=== PATIENT | male | born 1995 | race Caucasian/White ===

== ENCOUNTER 2018-10-12 08:40 | Inpatient (IN) | payer OTHER ==
[2018-10-12 09:44] LABS: ABS Basophils 0.1 10^3/ul (0-0.2); ABS Eosinophils 0.2 10^3/ul (0-0.6); ABS Monocytes 0.9 10^3/ul (0-0.8); Eosinophil % 1.4 %; Hematocrit 43 % (42-52); Hemoglobin 14.3 g/dL (14.0-18.0); Lymphocyte % 16.4 %; Mean Corpuscular HGB Conc 33 g/dL (31-36); Mean Corpuscular Hemoglobin 31 pg (27-31); Mean Corpuscular Volume 93 fL (80-94); Mean Platelet Volume 6.4 fL (7.4-10.4); Nucleated Red Blood Cells % 0.1; Platelet Count 470 10^3/uL (150-450); Red Blood Count 4.65 10^6 /uL (4.18-5.48); Red Cell Distribution Width 13 % (10-15); White Blood Count 12.1 10^3/uL (3.5-10.8)
[2018-10-12 09:52] LABS: Urine Appearance Turbid; Urine Bacteria Absent (Absent); Urine Bilirubin 1+ (Negative); Urine Blood Negative (Negative); Urine Color Amber; Urine Glucose Negative (Negative); Urine Ketones 2+ (Negative); Urine Nitrite Negative (Negative); Urine Protein 3+(>=500 mg/dL) (Negative); Urine Red Blood Cell Absent (Absent); Urine Specific Gravity 1.043 (1.010-1.030); Urine Squamous Epithelial Cell Present (Absent); Urine Urobilinogen Negative (Negative); Urine White Blood Cell 3+(>20/hpf) (Absent)
[2018-10-12 09:55] LABS: ALT 27 U/L (7-52); AST 36 U/L (13-39); Albumin 4.7 g/dL (3.2-5.2); Albumin/Globulin Ratio 1.9 (1-3); Alkaline Phosphatase 77 U/L (34-104); Anion Gap 14 mmol/L (2-11); BUN/Creatinine Ratio 16.5 (8-20); Blood Urea Nitrogen 20 mg/dL (6-24); CO2 Carbon Dioxide 24 mmol/L (22-32); Calcium 9.3 mg/dL (8.6-10.3); Chloride 98 mmol/L (101-111); EGFR African American 88.4 (>60); EGFR Non-African American 73.1 (>60); Globulin 2.5 g/dL (2-4); Glucose 81 mg/dL (70-100); Potassium 3.6 mmol/L (3.5-5.0); Sodium 136 mmol/L (135-145); Total Protein 7.2 g/dL (6.4-8.9)
[2018-10-12 10:10] LABS: Urine Benzodiazepine Screen None Detected (None Detect); Urine Opiates Screen Presumptive Positive (None Detect)
[2018-10-12 10:16] LABS: Alcohol < 10 mg/dL (<10)
[2018-10-12 10:31] LABS: TSH (Thyroid Stimulating Horm) 1.98 mcIU/mL (0.34-5.60)
[2018-10-12] MEDS ORDERED: Al Hydrox/Mg Hydrox/Simet LIQ* 30 ML UDC PO PRN (10:49)
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
[2018-10-12 13:10] LABS: Acetaminophen < 15 mcg/mL
[2018-10-12] MEDS: Buprenorp/Nalox 8-2 MG FILM SL FILM SCH (14:57)
[2018-10-12] MEDS: Gabapentin CAP(*) 100 MG PO SCH ×2 (14:58→20:23)
[2018-10-12] MEDS ORDERED: PTO:Albuterol HFA INHALER* 8 gm MDI INH PRN (17:23)
[2018-10-12] MEDS: Nicotine* 4MG (FRUIT FLAVOR) GUM PO PRN ×2 (17:55→20:24)
[2018-10-12] MEDS: Nicotine PATCH 21 MG/24 HR* PATCH TRANSDERM SCH (17:56)
[2018-10-12] MEDS: [UNRECOGNIZED DRUG - OTHER] INH SCH (20:24)
[2018-10-12] MEDS: MDI INH SCH (20:24)
[2018-10-12] MEDS: MOMETASONE INH SCH (20:24)
[2018-10-13] MEDS: Gabapentin CAP(*) 100 MG PO SCH (08:50)
[2018-10-13] MEDS: Nicotine PATCH 21 MG/24 HR* PATCH TRANSDERM SCH (08:51)
[2018-10-13] MEDS: Buprenorp/Nalox 8-2 MG FILM SL FILM SCH (08:52)
[2018-10-13] MEDS: Nicotine* 4MG (FRUIT FLAVOR) GUM PO PRN ×2 (08:57→17:51)
[2018-10-13] MEDS: MDI INH SCH ×2 (09:58→20:08)
[2018-10-13] MEDS: MOMETASONE INH SCH ×2 (09:58→20:08)
[2018-10-13] MEDS: [UNRECOGNIZED DRUG - OTHER] INH SCH ×2 (09:58→20:08)
[2018-10-13] MEDS: Lithium Carbonate TAB* 300 MG PO SCH ×2 (13:00→20:06)
[2018-10-13] MEDS: Gabapentin CAP(*) 400 MG PO SCH ×2 (13:00→20:07)
[2018-10-13 13:20] LABS: HDL Cholesterol 18.8 mg/dL
[2018-10-13 13:21] LABS: HIV 4th Generation Negative (Negative)
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
[2018-10-13 15:30] LABS: Hepatitis C Antibody Reactive (Negative)
[2018-10-13] MEDS: Calamine LOTION* 120 ML TOPICAL SCH ×3 (17:52→20:09)
[2018-10-13] MEDS: QUEtiapine TAB* 25 MG PO SCH (20:06)
[2018-10-14 07:40] LABS: ABS Basophils 0.1 10^3/ul (0-0.2); ABS Eosinophils 0.2 10^3/ul (0-0.6); ABS Lymphocytes 2.2 10^3/ul (1.0-4.8); ABS Monocytes 0.6 10^3/ul (0-0.8); ABS Neutrophils 3.5 10^3/ul (1.5-7.7); Eosinophil % 3.8 %; Hematocrit 45 % (42-52); Hemoglobin 15.1 g/dL (14.0-18.0); Lymphocyte % 33.6 %; Mean Corpuscular HGB Conc 34 g/dL (31-36); Mean Corpuscular Hemoglobin 32 pg (27-31); Mean Corpuscular Volume 94 fL (80-94); Mean Platelet Volume 6.6 fL (7.4-10.4); Nucleated Red Blood Cells % 0.1; Platelet Count 416 10^3/uL (150-450); Red Cell Distribution Width 13 % (10-15); White Blood Count 6.6 10^3/uL (3.5-10.8)
[2018-10-14] MEDS: Gabapentin CAP(*) 400 MG PO SCH ×3 (07:54→20:03)
[2018-10-14] MEDS: [UNRECOGNIZED DRUG - OTHER] INH SCH ×2 (07:55→20:04)
[2018-10-14] MEDS: MOMETASONE INH SCH ×2 (07:55→20:04)
[2018-10-14] MEDS: MDI INH SCH ×2 (07:55→20:04)
[2018-10-14 07:58] LABS: Albumin 3.9 g/dL (3.2-5.2); Albumin/Globulin Ratio 1.6 (1-3); BUN/Creatinine Ratio 9.3 (8-20); Calcium 9.1 mg/dL (8.6-10.3); EGFR African American 114.1 (>60); EGFR Non-African American 94.3 (>60); Globulin 2.5 g/dL (2-4); Potassium 4.3 mmol/L (3.5-5.0); Total Bilirubin 0.4 mg/dL (0.2-1.0); Total Protein 6.4 g/dL (6.4-8.9)
[2018-10-14] MEDS: Buprenorp/Nalox 8-2 MG FILM SL FILM SCH (08:00)
[2018-10-14] MEDS: Lithium Carbonate TAB* 300 MG PO SCH ×2 (08:00→20:04)
[2018-10-14] MEDS: Nicotine PATCH 21 MG/24 HR* PATCH TRANSDERM SCH (08:00)
[2018-10-14] MEDS: Calamine LOTION* 120 ML TOPICAL SCH ×2 (08:00→12:35)
[2018-10-14] MEDS: Nicotine* 4MG (FRUIT FLAVOR) GUM PO PRN ×5 (08:34→20:08)
[2018-10-14 13:37] LABS: Chlamydia trachomatis NAA Negative (Negative); Neisseria gonorrhoeae (GC) NAA Negative (Negative)
[2018-10-14] MEDS ORDERED: Calamine LOTION* 120 ML TOPICAL PRN (13:44)
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
[2018-10-14] MEDS: Acetaminophen TAB* 325 MG PO PRN (20:03)
[2018-10-14] MEDS: QUEtiapine TAB* 25 MG PO SCH (20:04)
[2018-10-14] MEDS: cloNIDine TAB* 0.1 MG PO SCH (20:04)
[2018-10-15] MEDS: MDI INH SCH ×2 (08:27→20:08)
[2018-10-15] MEDS: [UNRECOGNIZED DRUG - OTHER] INH SCH ×2 (08:27→20:08)
[2018-10-15] MEDS: MOMETASONE INH SCH ×2 (08:27→20:08)
[2018-10-15] MEDS: Lithium Carbonate TAB* 300 MG PO SCH ×2 (08:28→20:10)
[2018-10-15] MEDS: Gabapentin CAP(*) 400 MG PO SCH ×3 (08:28→20:09)
[2018-10-15] MEDS: Acetaminophen TAB* 325 MG PO PRN ×3 (08:29→20:13)
[2018-10-15] MEDS: Buprenorp/Nalox 8-2 MG FILM SL FILM SCH (08:30)
[2018-10-15] MEDS: Nicotine PATCH 21 MG/24 HR* PATCH TRANSDERM SCH (09:55)
[2018-10-15] MEDS: Nicotine* 4MG (FRUIT FLAVOR) GUM PO PRN ×4 (09:56→20:15)
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
[2018-10-15] MEDS: cloNIDine TAB* 0.1 MG PO SCH (20:08)
[2018-10-15] MEDS: QUEtiapine TAB* 25 MG PO SCH (20:10)
[2018-10-16] MEDS: Gabapentin CAP(*) 400 MG PO SCH ×3 (08:12→19:47)
[2018-10-16] MEDS: MOMETASONE INH SCH ×2 (08:12→19:46)
[2018-10-16] MEDS: MDI INH SCH ×2 (08:12→19:46)
[2018-10-16] MEDS: [UNRECOGNIZED DRUG - OTHER] INH SCH ×2 (08:12→19:46)
[2018-10-16] MEDS: Lithium Carbonate TAB* 300 MG PO SCH ×2 (08:12→19:48)
[2018-10-16] MEDS: Acetaminophen TAB* 325 MG PO PRN ×2 (08:13→19:49)
[2018-10-16] MEDS: Nicotine PATCH 21 MG/24 HR* PATCH TRANSDERM SCH (08:14)
[2018-10-16] MEDS: Buprenorp/Nalox 8-2 MG FILM SL FILM SCH (08:14)
[2018-10-16] MEDS: Nicotine* 4MG (FRUIT FLAVOR) GUM PO PRN ×4 (08:44→19:49)
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
[2018-10-16] MEDS: cloNIDine TAB* 0.1 MG PO SCH (19:47)
[2018-10-16] MEDS: QUEtiapine TAB* 25 MG PO SCH (19:48)
[2018-10-17] MEDS: Buprenorp/Nalox 8-2 MG FILM SL FILM SCH (08:18)
[2018-10-17] MEDS: Gabapentin CAP(*) 400 MG PO SCH ×3 (08:18→20:48)
[2018-10-17] MEDS: Lithium Carbonate TAB* 300 MG PO SCH ×2 (08:19→20:49)
[2018-10-17] MEDS: Nicotine PATCH 21 MG/24 HR* PATCH TRANSDERM SCH (08:20)
[2018-10-17] MEDS: Acetaminophen TAB* 325 MG PO PRN ×2 (08:20→20:51)
[2018-10-17] MEDS: MDI INH SCH ×2 (11:38→20:43)
[2018-10-17] MEDS: MOMETASONE INH SCH ×2 (11:38→20:43)
[2018-10-17] MEDS: [UNRECOGNIZED DRUG - OTHER] INH SCH ×2 (11:38→20:43)
[2018-10-17] MEDS ORDERED: cloNIDine TAB* 0.1 MG ONE (11:43)
[2018-10-17] MEDS ORDERED: hydrOXYzine HCL TAB* 50 MG ONE (11:43)
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
[2018-10-17] MEDS: Nicotine* 4MG (FRUIT FLAVOR) GUM PO PRN ×3 (13:50→20:46)
[2018-10-17] MEDS: chlorproMAZINE TAB* 50 MG PO PRN (16:17)
[2018-10-17] MEDS: cloNIDine TAB* 0.1 MG PO PRN (20:47)
[2018-10-17] MEDS: hydrOXYzine HCL TAB* 50 MG PO PRN (20:47)
[2018-10-17] MEDS: cloNIDine TAB* 0.1 MG PO SCH (20:47)
[2018-10-17] MEDS: QUEtiapine TAB* 100 MG PO SCH (20:48)
[2018-10-18] MEDS: Buprenorp/Nalox 8-2 MG FILM SL FILM SCH (08:43)
[2018-10-18] MEDS: Nicotine PATCH 21 MG/24 HR* PATCH TRANSDERM SCH (08:43)
[2018-10-18] MEDS: Lithium Carbonate TAB* 300 MG PO SCH ×2 (08:44→20:04)
[2018-10-18] MEDS: Gabapentin CAP(*) 400 MG PO SCH ×3 (08:44→20:05)
[2018-10-18] MEDS: Acetaminophen TAB* 325 MG PO PRN ×2 (08:46→20:07)
[2018-10-18] MEDS: cloNIDine TAB* 0.1 MG PO PRN ×2 (08:47→13:55)
[2018-10-18] MEDS: hydrOXYzine HCL TAB* 50 MG PO PRN ×2 (08:47→13:55)
[2018-10-18] MEDS: MOMETASONE INH SCH ×2 (09:27→20:06)
[2018-10-18] MEDS: MDI INH SCH ×2 (09:27→20:06)
[2018-10-18] MEDS: [UNRECOGNIZED DRUG - OTHER] INH SCH ×2 (09:27→20:06)
[2018-10-18] MEDS: Nicotine* 4MG (FRUIT FLAVOR) GUM PO PRN ×5 (09:28→20:26)
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
[2018-10-18] MEDS: cloNIDine TAB* 0.1 MG PO SCH (20:04)
[2018-10-18] MEDS: QUEtiapine TAB* 100 MG PO SCH (20:04)
[2018-10-18] MEDS: chlorproMAZINE TAB* 50 MG PO PRN (20:25)
[2018-10-19] MEDS: Buprenorp/Nalox 8-2 MG FILM SL FILM SCH (08:36)
[2018-10-19] MEDS: Gabapentin CAP(*) 400 MG PO SCH ×3 (08:36→20:39)
[2018-10-19] MEDS: Lithium Carbonate TAB* 300 MG PO SCH ×2 (08:36→20:40)
[2018-10-19] MEDS: Nicotine PATCH 21 MG/24 HR* PATCH TRANSDERM SCH (08:36)
[2018-10-19] MEDS: Acetaminophen TAB* 325 MG PO PRN ×2 (08:37→20:41)
[2018-10-19] MEDS: MOMETASONE INH SCH ×2 (08:37→21:18)
[2018-10-19] MEDS: Nicotine* 4MG (FRUIT FLAVOR) GUM PO PRN ×4 (08:37→21:04)
[2018-10-19] MEDS: [UNRECOGNIZED DRUG - OTHER] INH SCH ×2 (08:37→21:18)
[2018-10-19] MEDS: MDI INH SCH ×2 (08:37→21:18)
[2018-10-19] MEDS: cloNIDine TAB* 0.1 MG PO PRN ×2 (08:38→13:47)
[2018-10-19] MEDS: hydrOXYzine HCL TAB* 50 MG PO PRN ×2 (08:38→13:48)
[2018-10-19] MEDS: chlorproMAZINE TAB* 50 MG PO PRN (17:29)
[2018-10-19] MEDS: QUEtiapine TAB* 100 MG PO SCH (20:40)
[2018-10-19] MEDS: cloNIDine TAB* 0.1 MG PO SCH (20:40)
[2018-10-20] MEDS: MOMETASONE INH SCH ×2 (08:27→20:01)
[2018-10-20] MEDS: Nicotine PATCH 21 MG/24 HR* PATCH TRANSDERM SCH (08:27)
[2018-10-20] MEDS: MDI INH SCH ×2 (08:27→20:01)
[2018-10-20] MEDS: [UNRECOGNIZED DRUG - OTHER] INH SCH ×2 (08:27→20:01)
[2018-10-20] MEDS: Nicotine* 4MG (FRUIT FLAVOR) GUM PO PRN ×6 (08:28→20:01)
[2018-10-20] MEDS: hydrOXYzine HCL TAB* 50 MG PO PRN ×2 (08:28→14:40)
[2018-10-20] MEDS: cloNIDine TAB* 0.1 MG PO PRN ×2 (08:28→14:41)
[2018-10-20] MEDS: Gabapentin CAP(*) 400 MG PO SCH ×3 (08:28→19:59)
[2018-10-20] MEDS: Acetaminophen TAB* 325 MG PO PRN ×2 (08:28→19:59)
[2018-10-20] MEDS: Lithium Carbonate TAB* 300 MG PO SCH ×2 (08:28→20:00)
[2018-10-20] MEDS: Buprenorp/Nalox 8-2 MG FILM SL FILM SCH (09:58)
[2018-10-20 10:10] VITALS: BP 125/70
[2018-10-20] MEDS: chlorproMAZINE TAB* 50 MG PO PRN (16:47)
[2018-10-20] MEDS: cloNIDine TAB* 0.1 MG PO SCH (20:00)
[2018-10-20] MEDS: QUEtiapine TAB* 100 MG PO SCH (20:00)
[2018-10-21] MEDS: Lithium Carbonate TAB* 300 MG PO SCH (04:15)
[2018-10-21] MEDS ORDERED: Diazepam TAB(*) 10 MG PO ONE (04:15)
[2018-10-21] MEDS: Gabapentin CAP(*) 400 MG PO SCH (04:15)
[2018-10-21] MEDS: Nicotine PATCH 21 MG/24 HR* PATCH TRANSDERM SCH (04:16)
[2018-10-21] MEDS: Buprenorp/Nalox 8-2 MG FILM SL FILM SCH (04:17)
[2018-10-21] MEDS: cloNIDine TAB* 0.1 MG PO PRN (04:21)
[2018-10-21] MEDS: hydrOXYzine HCL TAB* 50 MG PO PRN (04:25)
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
== END 2018-10-21 04:35 | DRG 753 ==
LOC: ED 08:40 → BSU 10:49
PROVIDERS: ADMIT Psychiatry & Neurology Psychiatry; ATTEND Psychiatry & Neurology Psychiatry
DX: F31.81 Bipolar II disorder (principal); N17.9 Acute kidney failure, unspecified; R45.851 Suicidal ideations; R44.0 Auditory hallucinations; F17.210 Nicotine dependence, cigarettes, uncomplicated; F12.10 Cannabis abuse, uncomplicated; F11.10 Opioid abuse, uncomplicated; F15.10 Other stimulant abuse, uncomplicated; R44.1 Visual hallucinations; L23.7 Allergic contact dermatitis due to plants, except food; L29.9 Pruritus, unspecified; Z86.19 Personal history of other infectious and parasitic diseases; Z79.899 Other long term (current) drug therapy; Z81.8 Family history of other mental and behavioral disorders
CPT/HCPCS: 36415; 80053; 80061; 80178; 80307; 80320; 80329; 81003; 81015; 83036; 84443; 85025; 86803; 87086; 87389; 87491; 87522; 87591; 99222; 99231; 99232; 99233; 99238; 99285; A9270-GY; G0480